=== PATIENT | male | born 1960 | race Caucasian/White ===

== ENCOUNTER 2020-05-21 18:11 | Observation (INO) ==
[2020-05-21] MEDS ORDERED: SODIUM CHLORIDE 0.9% 1000ML 1,000 ML IV SCH (19:45)
--- NOTE | 2020-05-21 19:47 | Emergency Department Note ---
History of Present Illness General Chief complaint: Flank Pain Stated complaint: RIGHT SIDE FLANK PAIN Time Seen by Provider: 05/21/20 19:36 Source: patient Mode of arrival: ambulatory Limitations: no limitations History of Present Illness Provider complaint: Abdominal pain Onset (ago): day(s) Location: abdomen and right Radiation: non-radiation Severity: moderate Pain Consistency: + intermittent Maximum Pain Intensity: 4 Quality: + sharp Exacerbated By: + other (Pressure) Associated symptoms: + nausea/vomiting (Nausea without vomiting) and + other (Bloating of the abdomen); no chest pain, no cough, no fever/chills and no shortness of breath This is a 70-year-old male who presents with right lower quadrant abdominal pain starting yesterday. The patient states that yesterday he had some diarrhea with pain in his right lower abdomen. It is associated with some bloating. He had an episode of severe nausea while driving over here but that has resolved. He has not vomited. He denies any fever. He describes his pain is sharp and only there when you press on his abdomen. He did have a very small bowel movement today. He does have a history of surgery to his right kidney when he was very young. He denies any cough, chest pain, shortness of breath, fever or urinary symptoms. Home Medications Home Medications Medication Instructions Recorded Confirmed Type albuterol sulfate [Ventolin HFA] 1 - 2 puff INHALATION .Q4-6HR PRN 05/21/20 05/21/20 History montelukast 10 mg PO DAILY 05/21/20 05/21/20 History Allergies Allergy/AdvReac Type Severity Reaction Status Date / Time legumes Allergy Severe Anaphylaxis Verified 05/21/20 20:11 peanut Allergy Severe Anaphylaxis Verified 05/21/20 20:11 aspirin Allergy Unknown HAPPENED Verified 05/21/20 20:11 A BABY PER PT. Past Med/Surg History Medical History Asthma Social History Smoking Status: Never smoker Feels Safe at Home: Yes Review of Systems See HPI for pertinent positives & negatives. and A total of 10 systems reviewed and were otherwise negative Physical Exam Vital Signs Vital Signs - 24 hr 05/21/20 18:14 05/21/20 19:54 05/21/20 21:54 Temperature 37.1 C Temperature Source Oral Pulse Rate 100 H Pulse Rate [Finger] 92 H 87 Pulse Rhythm [Finger] Regular Regular Pulse Strength [Finger] Normal Normal Respiratory Rate 18 18 20 Respiratory Effort / Characteristics Non-Labored Spontaneous Non-Labored Spontaneous Respiratory Depth Normal Normal Respiratory Pattern Regular Regular Blood Pressure 161/100 H Blood Pressure [Right Arm] 167/100 H 182/99 H Blood Pressure Mean 120 Blood Pressure Mean [Right Arm] 122 126 Blood Pressure Position [Right Arm] Lying Lying Pulse Oximetry 97 98 99 Oxygen Delivery Method Room Air Room Air Room Air Sepsis Recent Fever Within 48 Hours No Sepsis New/Unexplained Change in Mental Status No Sepsis Action Taken by Nursing No Action Required Constitutional: Vital signs reviewed. Eyes: Pupils are equal round reactive to light. Conjunctiva are noninjected. ENT: Pharynx is clear without erythema or exudate. Mucous membranes are moist. Neck supple without meningeal signs. Respiratory: Clear to auscultation bilaterally. Breath sounds are equal bilaterally. Cardiovascular: Regular rate and rhythm. No rubs or gallops. GI: Soft, slightly distended with right lower quadrant tenderness. No guarding. Bowel sounds are present. Musculoskeletal: No peripheral edema. No CVA tenderness. Integumentary: No cyanosis. or jaundice. Neurological: The patient is awake and alert. No focal deficits. Psychiatric: Normal affect. Not anxious appearing. Course Consultations Consultation #1: Dr. Deleon Time: 21:48 Administered Medications Discontinued Medications Sodium Chloride (Nss 1000ml) 1,000 mls @ 999 mls/hr IV .Q1H1M CAROLYN Stop: 05/21/20 20:45 Last Infusion: 05/21/20 21:00 Dose: 0 mls/hr Documented by: [id number] Admin: 05/21/20 20:03 Dose: 999 mls/hr Documented by: [id number] Ioversol (Optiray 320 100ml) 94 ml IV ONCE ONE Stop: 05/21/20 21:05 Last Admin: 05/21/20 21:05 Dose: 94 ml Documented by: [id number] Ondansetron HCl (Zofran) Confirm Administered Dose 4 mg .ROUTE .STK-MED ONE Stop: 05/21/20 22:04 Last Admin: 05/21/20 22:05 Dose: 4 mg Documented by: [id number] Medical Decision Making Differential Diagnosis Appendicitis, perforation, abscess, bowel obstruction, constipation Medical Records Attestation: I reviewed the patient's medical records. I did perform a limited focused review of portions of the patient's old chart on the electronic medical record. The patient has had no prior visits to this hospital. Home Medications Current Medication List: was personally reviewed by me Laboratory Data Attestation: I reviewed the patient's lab results. Result diagrams: 05/21/20 19:50 05/21/20 19:50 Lab Results 05/21/20 05/21/20 05/21/20 Range/Units 19:50 19:50 19:55 WBC 19.13 H (4.8-10.8) K/uL RBC 5.65 (4.7-6.1) M/uL Hgb 16.7 (14.0-18.0) g/dL Hct 47.0 (42-52) % MCV 83.2 (80-100) fL MCH 29.6 (25-34) pg MCHC 35.5 (32-36) g/dL RDW Std Deviation 39.7 (36.4-46.3) fL RDW Coeff of Bart 13.3 (11.5-14.5) % Plt Count 313 (130-400) K/uL MPV 10.0 (7.4-10.4) fL Immature Gran % (Auto) 0.4 % Neut % (Auto) 80.3 % Lymph % (Auto) 7.1 % [place] % (Auto) 11.4 % Eos % (Auto) 0.6 % Baso % (Auto) 0.2 % Neut # (Auto) 15.36 H (1.4-6.5) K/uL Lymph # (Auto) 1.36 (1.2-3.4) K/uL [place] # (Auto) 2.19 H (0.11-0.59) K/uL Eos # (Auto) 0.11 (0-0.5) K/uL Baso # (Auto) 0.04 (0-0.2) K/uL Immature Gran # (Auto) 0.07 H (0.00-0.02) K/uL Sodium 137 (136-145) mmol/L Potassium 4.1 (3.5-5.1) mmol/L Chloride 105 (98-107) mmol/L Carbon Dioxide 27 (21-32) mmol/L Anion Gap 5.0 (3-11) BUN 10 (7-18) mg/dl Creatinine 0.99 (0.6-1.4) mg/dl Est Cr Clr Drug Dosing 86.9 ml/min Est GFR ( Amer) 96.9 Est GFR (Non-Af Amer) 83.6 BUN/Creatinine Ratio 10.3 (10-20) Glucose 113 H (70-99) mg/dl Calcium 9.6 (8.5-10.1) mg/dl Total Bilirubin 0.7 (0.2-1) mg/dl AST 15 (15-37) U/L ALT 45 (12-78) U/L Alkaline Phosphatase 85 (45-117) U/L Total Protein 7.8 (6.4-8.2) gm/dl Albumin 4.3 (3.4-5.0) gm/dl Globulin 3.5 (2.5-4.0) gm/dl Albumin/Globulin Ratio 1.2 (0.9-2) Lipase 58 L (73-393) U/L Urine Color Yellow Urine Appearance Clear (Clear) Urine pH 5.0 (4.5-7.5) Ur Specific [place] 1.024 (1.000-1.030) Urine Protein Negative (Negative) Urine Glucose (UA) Negative (Negative) Urine Ketones Negative (Negative) Urine Blood Negative (Negative) Urine Nitrite Negative (Negative) Urine Bilirubin Negative (Negative) Urine Urobilinogen Negative (Negative) Ur Leukocyte Esterase Negative (Negative) Imaging Data Radiologist's Impression: CT ABDOMEN & PELVIS With Contrast: Appendicitis with proximal fecalith. 1.4 cm maximal diameter. Adjacent phlegmon. No drainable abscess. No free air. 1.4 cm right lobe hepatic hypodensity is not definitively characterized. Consider correlation with nonemergent ultrasound. Radiologist: Roc Martinez M.D. Study ready at 21:11 and initial results transmitted at 21:38 Communications: Clear Time Type Notes 05/21/20 21:38 Call Doctor Regarding Appendicitis, called Dr. Zavaleta on 05/21 21:37 (-04:00) Blood Pressure Blood Pressure Findings: Elevated blood pressure Blood Pressure Disposition: Referred to patients primary care provider MDM Narrative I did evaluate the patient as noted above. IV access was established. He was given normal saline IV. He declined any pain medication. I did order a urine analysis. I did order and review the patient's blood work as noted in the electronic medical record. He does have a white count of 19,000. Electrolytes and LFTs are unremarkable. I did order a CT of the abdomen and pelvis. I did review the images myself as well as the radiology report as described above. He has acute appendicitis without abscess or perforation. He does have hypodensity in his liver. I did discuss the test results with the patient. He will follow- up with his regular doctor regarding incidental findings. I did discuss the case with Dr. Deleon of surgery who will see the patient in the emergency department. He did not wish to have antibiotics administered at this time. He did develop some vomiting and so he was given Zofran 4 mg IV. Impression & Plan Acute appendicitis Discharge Plan Visit Data Chief Complaint: Flank Pain Stated Complaint: RIGHT SIDE FLANK PAIN ED Provider: Jremaine Zavaleta Discharge Problem: Acute appendicitis Patient Disposition: Being Evaluated by Surgeon Forms Stand Alone Forms: [facility] Prescriptions Prescriptions: No Action montelukast 10 mg tablet 10 mg PO DAILY RF: 0 albuterol sulfate [Ventolin HFA] 90 mcg/actuation HFA aerosol inhaler 1 - 2 puff INHALATION .Q4-6HR PRN (Reason: Shortness Of Breath Or Wheezing) RF: 0 Referrals Referrals: PCP,NO [Primary Care Provider] - Discharge Problem: Acute appendicitis Qualifiers: Acute appendicitis type: unspecified acute appendicitis type Qualified Code(s): K35.80 - Unspecified acute appendicitis
[2020-05-21 20:11] LABS: Basophils # (auto) 0.04 K/uL (0-0.2); Basophils % (auto) 0.2 %; Eosinophils # (auto) 0.11 K/uL (0-0.5); Eosinophils % (auto) 0.6 %; Hemoglobin 16.7 g/dL (14.0-18.0); Immature Granulocytes # (auto) 0.07 K/uL (0.00-0.02); Immature Granulocytes % (auto) 0.4 %; Lymphocytes # (auto) 1.36 K/uL (1.2-3.4); Lymphocytes % (auto) 7.1 %; Mean Corpuscular Hemoglobin 29.6 pg (25-34); Mean Corpuscular Hgb Conc 35.5 g/dL (32-36); Mean Corpuscular Volume 83.2 fL (80-100); Monocytes # (auto) 2.19 K/uL (0.11-0.59); Monocytes % (auto) 11.4 %; Neutrophils # (auto) 15.36 K/uL (1.4-6.5); Neutrophils % (auto) 80.3 %; Platelet Count 313 K/uL (130-400); RDW Coefficient of Variation 13.3 % (11.5-14.5); RDW Standard Deviation 39.7 fL (36.4-46.3); Red Blood Count 5.65 M/uL (4.7-6.1); White Blood Count 19.13 K/uL (4.8-10.8)
[2020-05-21 20:15] LABS: Appearance Urine Clear (Clear); Bilirubin Urine Negative (Negative); Blood Urine Negative (Negative); Color Urine Yellow; Glucose Urine UA Negative (Negative); Ketones Urine Negative (Negative); Leukocyte Esterase Urine Negative (Negative); Nitrite Urine Negative (Negative); Protein Urine Negative (Negative); Specific Gravity Urine 1.024 (1.000-1.030); Urobilinogen Urine Negative (Negative)
[2020-05-21 20:28] LABS: Albumin Level 4.3 gm/dl (3.4-5.0); BUN Creatinine Ratio 10.3 (10-20); Calcium 9.6 mg/dl (8.5-10.1); Creatinine Clr Calc Pharmacy 86.9 ml/min; Est GFR (African American) 96.9; Est GFR (Non-African American) 83.6; Potassium 4.1 mmol/L (3.5-5.1)
[2020-05-21 20:31] LABS: Albumin Globulin Ratio 1.2 (0.9-2); Bilirubin,Total 0.7 mg/dl (0.2-1); Globulin 3.5 gm/dl (2.5-4.0); Total Protein 7.8 gm/dl (6.4-8.2)
[2020-05-21] MEDS ORDERED: IOVERSOL 100ml IV ONE (21:04)
[2020-05-21] MEDS ORDERED: ONDANSETRON INJ 2 MG/ML 2 ML VIAL ONE (22:03)
[2020-05-21] MEDS ORDERED: LIDOCAINE/EPINEPH/TETRACAINE 1 EA SYR EXT ONE (22:46)
--- NOTE | 2020-05-21 22:53 | History & Physical Report ---
Date of Service May 21, 2020 Assessment & Plan (1) Acute appendicitis: This patient's history, physical findings, laboratories and CT findings are consistent with appendicitis. I have recommended a laparoscopic appendectomy. I explained the possible need to convert to an open procedure. I explained the possible complications associated with those procedures. The patient wishes to go ahead with surgery and has signed a consent form. History of Present Illness Chief Complaint: Right lower quadrant abdominal pain with nausea and vomiting Primary Care Provider: NO PCP This is a 60-year-old male who presents to the emergency room with a complaint of abdominal pain. It began as a generalized discomfort. He thought it was related to eating a lot of corn. He had diarrhea. The discomfort began last night. It then increased in intensity and became sharp and migrated to the right lower quadrant where it is located now. It is exacerbated by motion. There is nothing he can do to get to relieve itself. He has had no melena or hematochezia. He denies dysuria and hematuria. He has never had pain like this before. Allergies Allergy/AdvReac Type Severity Reaction Status Date / Time legumes Allergy Severe Anaphylaxis Verified 05/21/20 20:11 peanut Allergy Severe Anaphylaxis Verified 05/21/20 20:11 aspirin Allergy Unknown HAPPENED Verified 05/21/20 20:11 A BABY PER PT. 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 Undescended right testicle Social History (Updated 05/21/20 @ 22:49 by Cristiano Deleon MD) Smoking Status: Never smoker Hx Alcohol Use: Yes (occasional) Hx Substance Use: No Feels Safe at Home: Yes Review of Systems Review of Systems: All systems reviewed & are unremarkable except as noted in HPI & below Physical Exam Constitutional: no acute distress Neck: trachea midline, no thyromegaly Respiratory: normal respiratory effort, lungs clear to auscultation Cardiovascular: Rate/Rhythm: regular rate and regular rhythm Gastrointestinal (Abdomen): Inspection/Auscultation: + abdomen distended (mild) and normal bowel sounds Percussion/Palpation: + abdomen tender (Right lower quadrant) and abdomen soft Results & Data Results & Data ([facility]) Vital Signs (Past 12 Hours) Vital Signs Temp Pulse Pulse Resp BP BP Pulse Ox 05/21/20 21:54 87 20 182/99 H 99 05/21/20 19:54 92 H 18 167/100 H 98 05/21/20 18:14 37.1 C 100 H 18 161/100 H 97 Laboratory Results 05/21/20 05/21/20 05/21/20 Range/Units 19:55 19:50 19:50 WBC 19.13 H (4.8-10.8) K/uL RBC 5.65 (4.7-6.1) M/uL Hgb 16.7 (14.0-18.0) g/dL Hct 47.0 (42-52) % MCV 83.2 (80-100) fL MCH 29.6 (25-34) pg MCHC 35.5 (32-36) g/dL RDW Std Deviation 39.7 (36.4-46.3) fL RDW Coeff of Bart 13.3 (11.5-14.5) % Plt Count 313 (130-400) K/uL MPV 10.0 (7.4-10.4) fL Immature Gran % (Auto) 0.4 % Neut % (Auto) 80.3 % Lymph % (Auto) 7.1 % [place] % (Auto) 11.4 % Eos % (Auto) 0.6 % Baso % (Auto) 0.2 % Neut # (Auto) 15.36 H (1.4-6.5) K/uL Lymph # (Auto) 1.36 (1.2-3.4) K/uL [place] # (Auto) 2.19 H (0.11-0.59) K/uL Eos # (Auto) 0.11 (0-0.5) K/uL Baso # (Auto) 0.04 (0-0.2) K/uL Immature Gran # (Auto) 0.07 H (0.00-0.02) K/uL Sodium 137 (136-145) mmol/L Potassium 4.1 (3.5-5.1) mmol/L Chloride 105 (98-107) mmol/L Carbon Dioxide 27 (21-32) mmol/L Anion Gap 5.0 (3-11) BUN 10 (7-18) mg/dl Creatinine 0.99 (0.6-1.4) mg/dl Est Cr Clr Drug Dosing 86.9 ml/min Est GFR ( Amer) 96.9 Est GFR (Non-Af Amer) 83.6 BUN/Creatinine Ratio 10.3 (10-20) Glucose 113 H (70-99) mg/dl Calcium 9.6 (8.5-10.1) mg/dl Total Bilirubin 0.7 (0.2-1) mg/dl AST 15 (15-37) U/L ALT 45 (12-78) U/L Alkaline Phosphatase 85 (45-117) U/L Total Protein 7.8 (6.4-8.2) gm/dl Albumin 4.3 (3.4-5.0) gm/dl Globulin 3.5 (2.5-4.0) gm/dl Albumin/Globulin Ratio 1.2 (0.9-2) Lipase 58 L (73-393) U/L Urine Color Yellow Urine Appearance Clear (Clear) Urine pH 5.0 (4.5-7.5) Ur Specific [place] 1.024 (1.000-1.030) Urine Protein Negative (Negative) Urine Glucose (UA) Negative (Negative) Urine Ketones Negative (Negative) Urine Blood Negative (Negative) Urine Nitrite Negative (Negative) Urine Bilirubin Negative (Negative) Urine Urobilinogen Negative (Negative) Ur Leukocyte Esterase Negative (Negative) Diagnostic Findings CT scan of the abdomen and pelvis with contrast. Appendicitis with proximal fecalith. 1.4 cm maximal diameter. Adjacent phlegmon. No drainable abscess. No free air. 1.4 cm right lobe hepatic hypodensity not definitively characterized. (1) Acute appendicitis Acute appendicitis type: unspecified acute appendicitis type Qualified Code(s): K35.80 - Unspecified acute appendicitis
[2020-05-21] MEDS ORDERED: PROPOFOL IV EMULSION 10 MG/ML 20 ML VIAL IV ONE (23:53)
[2020-05-21] MEDS ORDERED: fentaNYL citrate 100 MCG/2 ML VIAL ONE (23:53)
[2020-05-21] MEDS ORDERED: ROCURONIUM BROMIDE 10 MG/ML 5 ML VIAL IV ONE (23:53)
[2020-05-22] MEDS ORDERED: HYDROmorphone INJ 2 MG/ML SYR/VIAL IV PRN (00:06)
[2020-05-22] MEDS ORDERED: ePHEDrine sulfate 50 MG/ML AMP IV PRN (00:06)
[2020-05-22] MEDS ORDERED: ONDANSETRON INJ 2 MG/ML 2 ML VIAL IV PRN ×2 (00:06→03:55)
[2020-05-22] MEDS ORDERED: ATROPINE SULFATE 0.1 MG/ML 10ML SYR IV PRN (00:06)
[2020-05-22] MEDS ORDERED: fentaNYL citrate 100 MCG/2 ML VIAL IV PRN (00:06)
[2020-05-22] MEDS ORDERED: BUPIVACAINE 0.5 % 5 MG/1 ML MPF 30ML VIAL ONE (01:14)
[2020-05-22] MEDS ORDERED: CEFAZOLIN 250 MG/ML 1 GM VIAL ONE (01:14)
--- NOTE | 2020-05-22 01:18 | Anesthesiology Consultation ---
Date of Service May 22, 2020 Assessment & Plan ASA ASA2E Proposed Anesthesia Anesthesia Type: General Risk / Benefits Reviewed With: PT / POA / Parent / Guardian, Accepts Plan and Informed Consent Obtained History Surgery Operation Date: 05/22/20 00:00 Proposed Procedures p Laparoscopic Appendectomy - Cristiano Deleon MD Height/Weight Height: 5 ft 6 in Weight: 93.1 kg Allergies Allergy/AdvReac Type Severity Reaction Status Date / Time legumes Allergy Severe Anaphylaxis Verified 05/21/20 20:11 peanut Allergy Severe Anaphylaxis Verified 05/21/20 20:11 aspirin Allergy Unknown HAPPENED Verified 05/21/20 20:11 A BABY PER PT. Medications Home Medications Medication Instructions Recorded Confirmed Last Taken albuterol sulfate [Ventolin HFA] 1 - 2 puff INHALATION .Q4-6HR PRN 05/21/20 05/21/20 Unknown montelukast 10 mg PO DAILY 05/21/20 05/21/20 05/21/20 NPO Date Last Intake of Fluids: 05/21/20 Time Last Intake of Fluids: 16:00 Last Intake of Fluids Comment: sip of gingerale Date Last Intake of Solids: 05/20/20 Time Last Intake of Solids: 19:00 Last Intake of Solids Comment: corn Past Medical History Medical History Asthma Exercise / Class Metabolic Activity II 4-5 Yardwork/Stairs/Walk up hill Past Surgical History Surgical History History of kidney surgery ass a child for anatomic abnormality Undescended right testicle Past Anesthesia History No Hx of Anesthesia Complications and No Family Hx of Anesthesia Complications History of PONV No Hx of PONV and No Hx of Motion Sickness Social History Smoking Status: Never smoker Hx Alcohol Use: Yes (occasional) Hx Substance Use: No Review of Systems denies fever/cough/ colds/ chest pain/ SOB/ DIPESH Constitutional: no fever and no chills Respiratory: no cough and no dyspnea denies DIPESH Cardiovascular: no chest pain and no dyspnea on exertion Physical Exam Vital Signs Last Vital Signs Temp 36.7 C 05/22/20 00:03 Pulse 87 05/22/20 00:03 Resp 16 05/22/20 00:03 BP 176/96 H 05/22/20 00:03 Pulse Ox 95 05/22/20 00:03 ENMT Mouth: no TMJ abnormality and no dentition abnormality Thyromental Distance: > or= 3.5 Finger Breadths Mallampati Class: II Neck + limited neck extension Respiratory normal respiratory effort; no respiratory distress Auscultation: lungs clear to auscultation bilaterally Cardiovascular Rate/Rhythm: regular rate and regular rhythm Neurologic moves all extremities Psychiatric Orientation: alert and oriented x 3 Testing Laboratory Results 05/21/20 19:50 05/21/20 19:50 Urine Color Yellow 05/21/20 19:55 Urine Appearance Clear (Clear) 05/21/20 19:55 Urine pH 5.0 (4.5-7.5) 05/21/20 19:55 Ur Specific [place] 1.024 (1.000-1.030) 05/21/20 19:55 Urine Protein Negative (Negative) 05/21/20 19:55 Urine Glucose (UA) Negative (Negative) 05/21/20 19:55 Urine Ketones Negative (Negative) 05/21/20 19:55 Urine Nitrite Negative (Negative) 05/21/20 19:55 Ur Leukocyte Esterase Negative (Negative) 05/21/20 19:55
[2020-05-22] MEDS ORDERED: fentaNYL citrate 100 MCG/2 ML VIAL ONE (01:34)
[2020-05-22] MEDS ORDERED: DEXAMETHASONE SOD INJ 4 MG/ML VIAL ONE (01:36)
[2020-05-22] MEDS ORDERED: KETOROLAC 30 MG/ML VIAL ONE (01:36)
[2020-05-22] MEDS ORDERED: GLYCOPYRROLATE 0.2 MG/ML VIAL ONE (01:52)
[2020-05-22] MEDS ORDERED: NEOSTIGMINE METHYLSULFATE 5 MG/5 ML SYR ONE (01:52)
--- NOTE | 2020-05-22 02:26 | Post Operative Brief Note ---
Immediate Post Op Note v1 Date of Surgery May 22, 2020 Pre & Post Diagnosis Operation Date: 05/22/20 00:00 Pre-Op Diagnosis: Acute Appendicitis Post-Op Diagnosis: Acute Appendicitis I identified the patient and participated in the time-out.: Yes Procedure Operation Date: 05/22/20 00:00 Actual Procedures p Laparoscopic Appendectomy, Lysis of Adhesions(Not Applicable) - Cristiano Deleon MD Surgeon Cristiano Deleon MD Mainframe Programmer None Estimated Blood Loss 3 Findings Consistent with Post-Op Diagnosis
--- NOTE | 2020-05-22 03:33 | Anesthesiology Progress Note ---
Date of Service May 22, 2020 Anesthesia Post Procedure Vital Signs Vital Signs: Temp Pulse Pulse Resp BP BP Pulse Ox 05/22/20 03:17 37 C 86 20 145/78 H 96 05/22/20 03:10 92 H 20 148/79 H 96 05/22/20 03:02 83 18 141/76 H 96 05/22/20 02:49 36 C L 81 20 131/72 98 05/22/20 00:03 36.7 C 87 16 176/96 H 95 05/21/20 23:31 88 20 180/89 H 96 05/21/20 21:54 87 20 182/99 H 99 05/21/20 19:54 92 H 18 167/100 H 98 05/21/20 18:14 37.1 C 100 H 18 161/100 H 97 Pain Intensity Right Abdomen: Pain Intensity: 4 Transfer of Care Handoff Completed per policy Notes Mental Status: alert / awake / arousable and participated in evaluation Patient Amnestic to Procedure: Yes Nausea / Vomiting: adequately controlled Pain: adequately controlled Airway Patency, RR, SpO2: stable & adequate BP & HR: stable & adequate Hydration State: stable & adequate Anesthetic Complications: no major complications apparent and Pt Satisfied with anesthetic care
[2020-05-22] MEDS ORDERED: OXYCODONE/ACETAMINOPHEN 5mg/325mg TAB PO PRN (03:55)
[2020-05-22] MEDS ORDERED: MoRPHine SULFATE 4 MG/ML 1 ML CARP\\VIAL IV PRN (03:55)
[2020-05-22] MEDS ORDERED: D5W AND 1/2NSS + 20MEQ KCL 20 MEQ/1,000 ML BAG IV SCH (04:15)
--- NOTE | 2020-05-22 06:51 | Operative Report (OR) ---
DATE OF OPERATION: 05/22/2020 PREOPERATIVE DIAGNOSIS: Appendicitis. POSTOPERATIVE DIAGNOSIS: Appendicitis. PROCEDURE: Laparoscopic appendectomy. SURGEON: Cristiano Deleon MD FINDINGS: The appendix was hyperemic, firm and in some areas appeared to be developing necrosis. The base of the appendix for about 1.5 cm was completely normal and the cecum at the base of the appendix was normal. There was some adhesion of the cecum to the lateral abdominal wall, but it did not involve the appendix. The visible bowel appeared normal. TECHNIQUE: The patient was given a general anesthetic and the area was prepped and draped in the usual sterile fashion. Site for the infraumbilical incision was chosen and the skin was anesthetized with 0.5% Marcaine. Skin incision was made and it was carried down through the subcutaneous tissue to the fascia which was grasped with 2 Roel clamps and incised between. The peritoneum was identified, incised, and introducer was placed bluntly. The abdomen was then insufflated to a pressure of 15 mmHg of carbon dioxide. The site for the lower introducer was chosen and the skin in layers were anesthetized with 0.5% Marcaine. Skin incision was made and the introducer was placed under direct vision. The appendix was easily seen extending off the inferior aspect of the cecum and attached to the posterolateral abdominal wall. The left lower quadrant introducer site was chosen. The skin was anesthetized with 0.5% Marcaine. The skin incision was made, and the introducer was placed under direct vision. The appendix was easily away from the posterolateral abdominal wall and elevated. That allowed me to identify the base of the appendix. I was able to establish a plane between the base of the appendix and the mesoappendix with ease. The mesoappendix was divided using the Endo-ALEJO stapler and the appendix was then amputated making sure that the staple lines were incorporating only the normal-appearing tissue. The appendix was placed into an Endobag and brought out through the left lower quadrant introducer site with ease. That introducer was replaced and the right lower quadrant was irrigated. The staple lines were inspected and there was no bleeding. Further irrigation was performed. The irrigation was removed. Any irrigation that entered the right upper quadrant was removed and any irrigation in the pelvis was removed. The staple lines were inspected again and there was no bleeding. Some of the adhesion of the cecum was taken down. The gas was allowed to escape and the introducers were removed. The fascia of the umbilical and left lower quadrant introducer sites was closed with interrupted 0 Vicryl and the skin of all the incisions was closed with 4-0 Monocryl in either an interrupted or running subcuticular fashion. The skin was cleansed, dried, benzoin placed, Steri-Strips applied. Estimated blood loss was 3 mL. Sponge, needle and instrument counts were correct prior to closure. The patient tolerated the surgical procedure without complication and was transferred to recovery. I attest to the content of the Intraoperative Record and any orders documented therein. Any exception s are noted below.
--- NOTE | 2020-05-22 07:34 | CT Scan Report ---
CT abd pelvis IV con only CLINICAL HISTORY: Right lower quadrant abdominal pain COMPARISON STUDY: None. TECHNIQUE: Patient was scanned in a dynamic helical fashion during intravenous administration of 94 c c Optiray 320 A dose lowering technique was utilized adhering to the principles of ALARA. CT DOSE: 612.28 mGy.cm FINDINGS: Lower chest: The heart is normal in size and configuration, without pericardial effusion. The lung ba ses and pleural spaces are clear. Liver: There are 3 hypodense right lobe hepatic lesions, the largest of which measures 14 mm. These c annot be further characterized on this noncontrast study Gallbladder: Unremarkable. Spleen: Normal in size and attenuation. Pancreas: Unremarkable. Adrenal glands: Unremarkable. Kidneys: 06/10/2010 demonstrates an extrarenal pelvis. No solid renal masses are visualized. There is no significant hydronephrosis Bowel: There are no transition zones indicate bowel obstruction. There is no evidence of acute divert iculitis. There is a dilated fluid-filled appendix with mild periappendiceal stranding. In the settin g of right lower quadrant abdominal pain the findings are indicative of acute appendicitis. Peritoneum: There is no intraperitoneal free air or abdominal ascites. Vasculature: The abdominal aorta is normal in course and caliber. Adenopathy: None. Pelvic viscera: There is bladder wall thickening. This is likely secondary to chronic bladder outlet obstruction. The prostate is enlarged. Skeletal structures: No destructive osseous lesions are seen. IMPRESSION: 1. Dilated fluid-filled appendix with periappendiceal stranding. The findings are indicative of acute appendicitis and surgical consultation is recommended 2.No evidence of bowel obstruction. No evidence of free air 3. Indeterminate hepatic hypodense lesions measuring up to 14 mm. 4. Prostatomegaly and bladder wall thickening ACT 112: Negative or not required by law. Electronically signed by: Rolando Adams M.D. 05/22/2020 7:32 AM
--- NOTE | 2020-05-22 13:31 | Surgery Progress Note ---
Date of Service May 22, 2020 Assessment & Plan (1) Acute appendicitis: Doing quite well postoperatively status post laparoscopic appendectomy postoperative day 0 Can discharge to home Discussed activity restrictions and follow-up Subjective Postoperative day 0 status post laparoscopic appendectomy He states he feels great Has no nausea Tolerated regular diet Having minimal abdominal discomfort No redness or drainage from the incisions Physical Exam Constitutional: no acute distress Gastrointestinal (Abdomen): Inspection/Auscultation: normal bowel sounds; abdomen not distended Percussion/Palpation: + abdomen tender (Mild incisional only) and abdomen soft Results & Data Vital Signs (Past 12 Hours) Vital Signs Temp Pulse Pulse Resp BP BP Pulse Ox 05/22/20 06:30 36.5 C 99 H 16 149/79 H 96 05/22/20 05:23 36.8 C 93 H 16 158/92 H 94 05/22/20 04:30 36.8 C 97 H 18 167/90 H 94 05/22/20 04:00 36.7 C 88 14 160/89 H 95 05/22/20 03:17 37 C 86 20 145/78 H 96 05/22/20 03:10 92 H 20 148/79 H 96 05/22/20 03:02 83 18 141/76 H 96 05/22/20 02:49 36 C L 81 20 131/72 98 (1) Acute appendicitis Acute appendicitis type: unspecified acute appendicitis type Qualified Code(s): K35.80 - Unspecified acute appendicitis
--- NOTE | 2020-05-22 13:38 | Discharge Summary ---
Date of Service May 22, 2020 Admission HPI Per Admitting Provider This is a 60-year-old male who presents to the emergency room with a complaint of abdominal pain. It began as a generalized discomfort. He thought it was related to eating a lot of corn. He had diarrhea. The discomfort began last night. It then increased in intensity and became sharp and migrated to the right lower quadrant where it is located now. It is exacerbated by motion. There is nothing he can do to get to relieve itself. He has had no melena or hematochezia. He denies dysuria and hematuria. He has never had pain like this before. Admission Exam Per Admitting Provider Constitutional: no acute distress Neck: trachea midline, no thyromegaly Respiratory: normal respiratory effort, lungs clear to auscultation Cardiovascular: Rate/Rhythm: regular rate and regular rhythm Gastrointestinal (Abdomen): Inspection/Auscultation: + abdomen distended (mild) and normal bowel sounds Percussion/Palpation: + abdomen tender (Right lower quadrant) and abdomen soft Principal Diagnosis Appendicitis Discharge Exam Constitutional no acute distress Gastrointestinal (Abdomen) Inspection/Auscultation: normal bowel sounds and + abdominal surgical incision (Clean, dry and intact); abdomen not distended Percussion/Palpation: + abdomen tender (Incisional only) and abdomen soft Discharge Data Allergies Allergy/AdvReac Type Severity Reaction Status Date / Time legumes Allergy Severe Anaphylaxis Verified 05/21/20 20:11 peanut Allergy Severe Anaphylaxis Verified 05/21/20 20:11 aspirin Allergy Unknown HAPPENED Verified 05/21/20 20:11 A BABY PER PT. Procedures Performed Operation Date: 05/22/20 00:00 Actual Procedures p Laparoscopic Appendectomy, Lysis of Adhesions(Not Applicable) - Cristiano Deleon MD Ordered Studies 05/21/20 19:43 CT abd pelvis IV con only Urgent Hospital Course (1) Acute appendicitis: The patient was taken to the operating room and underwent an uncomplicated laparoscopic appendectomy. There was no evidence of perforation or abscess. Postoperatively he was tolerating regular diet and feeling quite well. He is having very little pain. He was ambulating. Total Time Total Time Spent Total Time Spent (In Minutes): 10 Discharge Plan Discharge Items Patient Disposition: Home - Self-Care Reason For Visit: APPENDICITIS Discharge Diagnosis: Appendicitis Activity: As commented below Non-emergency contact: Surgeon Call non-emergency contact if: your temperature is above 101.5, your wound has increased redness and your wound has increased drainage Follow-up/Referrals: PCP,NO [Primary Care Provider] - Diet: Regular Addtl Attending Provider Instructions: Post-Surgical ~Discharge Instructions Activity Recommendations: - lifting limitation: (10 pounds for 2 weeks), - exercise/sex/sports limit: (nonstrenuous for 2 weeks), - driving or machine use limit: (none for 1 week), - Shower/bathe limit: (may shower beginning tomorrow) Diet: - Resume previous diet SPECIAL CARE INSTRUCTIONS: - May shower in 24 hours. Let water run over area and pat dry. - Leave steri strips on for one week. - Call the surgeon's office with any questions or concerns - - (ex. temperature higher than 101 degrees F, excessive bleeding or pain). MEDICATIONS: - Resume previous medications unless instructed otherwise by your surgeon. - Tylenol 650 mg every 6 hours as needed for pain - Ibuprofen 600 mg every 6 hours with food as needed for pain FOLLOW UP VISIT: - If not already scheduled, please call the office to schedule a two week follow-up appointment. Office number Pending Studies at Discharge: Yes Studies:: Pathology Stand-Alone Forms: My [facility] [place], Smoking Cessation Medications and DC Order Prescriptions: Continued montelukast 10 mg tablet 10 mg PO DAILY RF: 0 albuterol sulfate [Ventolin HFA] 90 mcg/actuation HFA aerosol inhaler 1 - 2 puff INHALATION .Q4-6HR PRN (Reason: Shortness Of Breath Or Wheezing) RF: 0 Discharge Orders: Discharge Order (Routine); Ordered 05/22/20 Ordered By: Cristiano Deleon Admission Data Admit Date/Time: 05/22/20 02:26 Attending Provider: Cristiano Deleon Admit Provider: Cristiano Deleon Primary Care Provider: LISSET HIGHTOWER
== END 2020-05-22 14:40 | disposition home or self-care (01) ==
LOC: ED 18:11 → 3N 23:46 → OR 23:46